=== PATIENT | female | born 1935 | race Native Hawaiian/Other Pacific Islander ===

== ENCOUNTER 2016-07-10 08:25 | Outpatient (CLI) | payer OTHER ==
[~2016-07-10 08:25] MED LIST: ACET7.5T70 PO; ALPR0.5T24 PO; CELEXA40 MG PO; CLON0.5T36 PO; DIOVAN320 MG PO; ESTR0.6211 PO; ESTRACE0.5 MG PO; HYDR10TA47 PO; MELATONIN5 M2 PO; MELO-13; MOBIC7.5 M1 PO; NAPROSYN500 MG PO; NEXIUM40 M1 PO; NEXIUM40 MG PO; RISP0.5T2 PO; ROSU10TA PO; SOMA350 MG PO
[2016-07-10 08:49] LABS: PLATELET COUNT 178 K/uL (152-353)
[2016-07-10 09:40] LABS: SODIUM 138 mmol/L (136-145)
== END 2016-07-10 09:25 | disposition home or self-care (01) ==
LOC: LABW 08:25 → EDBD 08:25 → LABW 09:25
PROVIDERS: Family Medicine
DX: F41.8 Other specified anxiety disorders (principal); I10 Essential (primary) hypertension; K21.9 Gastro-esophageal reflux disease without esophagitis; M54.2 Cervicalgia; E78.4 Other hyperlipidemia; E55.9 Vitamin D deficiency, unspecified
CPT/HCPCS: 36415; 80053; 80061; 81000; 82043; 82570; 82652; 83735; 84439; 84443; 84550; 85027

== ENCOUNTER 2016-07-24 09:10 | Outpatient (CLI) | payer OTHER | END 2016-07-24 19:46 | disposition home or self-care (01) | LOC: EDBD 09:10 → RAD 09:10 | DX: I10 Essential (primary) hypertension (principal); M25.552 Pain in left hip ==

== ENCOUNTER 2016-07-25 09:52 | Outpatient (CLI) | payer OTHER ==
[2016-07-25 10:39] LABS: PLATELET COUNT 185 K/uL (152-353)
[2016-07-25 11:03] LABS: POTASSIUM 4.1 mmol/L (3.6-5.2); SODIUM 139 mmol/L (136-145)
== END 2016-07-25 19:38 | disposition home or self-care (01) ==
LOC: LABW 09:52 → EDBD 09:52 → LABW 19:38
PROVIDERS: Specialist
DX: F03.90 Unspecified dementia, unspecified severity, without behavioral disturbance, psychotic disturbance, mood disturbance, and anxiety (principal)
CPT/HCPCS: 36415; 80053; 82607; 83090; 85027; 85651; 86039; 86140

== ENCOUNTER 2017-01-02 13:18 | Outpatient (CLI) | payer OTHER ==
[2017-01-02 13:48] LABS: PLATELET COUNT 180 K/uL (152-353)
[2017-01-02 14:16] LABS: POTASSIUM 4.4 mmol/L (3.6-5.2)
== END 2017-01-02 18:58 | disposition home or self-care (01) ==
LOC: LAB 13:18 → EDBD 13:18 → LAB 18:58
PROVIDERS: Family Medicine
DX: F41.8 Other specified anxiety disorders (principal); M54.2 Cervicalgia; I10 Essential (primary) hypertension; R94.5 Abnormal results of liver function studies; Z78.0 Asymptomatic menopausal state; Z79.899 Other long term (current) drug therapy; Z51.81 Encounter for therapeutic drug level monitoring; G47.09 Other insomnia; E55.9 Vitamin D deficiency, unspecified
CPT/HCPCS: 80053; 80061; 81000; 82043; 82570; 82652; 83036; 83735; 84439; 84443; 84550; 85027

== ENCOUNTER 2017-01-22 13:55 | Outpatient (CLI) | payer OTHER | END 2017-01-22 14:55 | disposition home or self-care (01) | LOC: RAD 13:55 | DX: N95.8 Other specified menopausal and perimenopausal disorders (principal) ==

== ENCOUNTER 2017-01-26 13:09 | Outpatient (CLI) | payer OTHER | END 2017-01-26 14:10 | disposition home or self-care (01) | LOC: LAB 13:09 | DX: R30.0 Dysuria (principal); Z91.89 Other specified personal risk factors, not elsewhere classified; N81.10 Cystocele, unspecified; N39.498 Other specified urinary incontinence | CPT/HCPCS: 81000; 87088 ==

== ENCOUNTER 2017-09-02 13:48 | Emergency (ER) | payer OTHER ==
[~2017-09-02] VITALS: Ht 165.1 cm; Wt 62.6 kg
[2017-09-02 13:45] VITALS: BP 106/46; TEMP 98.1
== END 2017-09-02 14:14 | disposition home or self-care (01) ==
LOC: ED 13:48
DX: M25.552 Pain in left hip (principal); M79.605 Pain in left leg
CPT/HCPCS: 99281

== ENCOUNTER 2017-09-03 08:55 | Outpatient (CLI) | payer OTHER | END 2017-09-03 22:04 | disposition home or self-care (01) | LOC: RAD 08:55 | DX: M25.552 Pain in left hip (principal); M25.551 Pain in right hip; M25.562 Pain in left knee; M25.561 Pain in right knee ==

== ENCOUNTER 2018-05-14 12:13 | Inpatient (IN) | payer OTHER ==
[2018-05-14] VITALS (9 sets, daily range): BP systolic 92–135; BP diastolic 55–76; TEMP 98.2–98.8; Ht 165.1 cm; Wt 66.8 kg
[~2018-05-14] VITALS: Ht 165.1 cm; Wt 66.8 kg
[~2018-05-14 12:13] MED LIST changes: +ALUMSUS6 PO; +CELEXA10 MG PO; +CRESTOR20 MG PO; +DONE5TAB PO; +EMOLOIN22 EX; +ESCI10TA PO; +LOSA50TA PO; +MAGNSUS68 PO; +MELOXICAM7.5 MG PO; +MIRTAZAPINE7.5 MG PO; +MOBIC15 MG PO; +NAMZARIC 28-101 CAP PO; +OMEP20CA PO; +PANTOPRAZOLE 40MG TA PO; +RISP0.25 PO; +TRAM50TA PO; +TYLENOL325 MG PO
[2018-05-14 14:32] LABS: PLATELET COUNT 162 K/uL (152-353)
[2018-05-14] MEDS ORDERED: ESCITALOPRAM10 MG PO (18:21)
[2018-05-15] VITALS (19 sets, daily range): BP systolic 88–144; BP diastolic 45–502; TEMP 98.4–99.2
[2018-05-15] MEDS ORDERED: CLARITIN10 M1 PO (03:51)
[2018-05-15 06:19] LABS: PLATELET COUNT 135 K/uL (152-353)
[2018-05-15 06:32] LABS: POTASSIUM 3.9 mmol/L (3.6-5.2)
[2018-05-15] MEDS ORDERED: REMERON30 MG PO (15:10)
[2018-05-16] VITALS: BP 128/50; TEMP 98.8
[2018-05-16 04:19] VITALS: BP 139/61; TEMP 98.8
[2018-05-16 05:03] LABS: PLATELET COUNT 119 K/uL (152-353)
[2018-05-16 05:16] LABS: POTASSIUM 3.7 mmol/L (3.6-5.2)
[2018-05-16 08:00] VITALS: BP 139/65; TEMP 98.8
[2018-05-16 11:40] VITALS: BP 138/62; TEMP 98.4
== END 2018-05-16 13:30 | disposition home or self-care (01) | DRG 392 ==
LOC: ICU 12:13 → MED/SURG 05-15 17:59
PROVIDERS: ADMIT Family Medicine
DX: K52.89 Other specified noninfective gastroenteritis and colitis (principal); K92.1 Melena; N39.0 Urinary tract infection, site not specified; R19.7 Diarrhea, unspecified; E86.0 Dehydration; I10 Essential (primary) hypertension; B96.29 Other Escherichia coli [E. coli] as the cause of diseases classified elsewhere
CPT/HCPCS: 80053; 82272; 82550; 83605; 83735; 83880; 84100; 84484; 85027; 85610; 87040; 87077; 87086; 87088; 87185; 87186; 87205; 87324; 87328; 87329; 87449; 87502; 87899; 93005; J1885; J1956; J3475; J3480; Q9963

== ENCOUNTER 2018-06-21 13:10 | Outpatient (CLI) | payer OTHER ==
[~2018-06-21 13:10] MED LIST changes: +CLARITIN10 M1 PO; +ESCITALOPRAM10 MG PO; +REMERON30 MG PO
== END 2018-06-21 20:05 | disposition home or self-care (01) ==
LOC: MRI 13:10
DX: G30.9 Alzheimer's disease, unspecified (principal); F02.80 Dementia in other diseases classified elsewhere, unspecified severity, without behavioral disturbance, psychotic disturbance, mood disturbance, and anxiety; M89.8X8 Other specified disorders of bone, other site; I10 Essential (primary) hypertension; E55.9 Vitamin D deficiency, unspecified

== ENCOUNTER 2018-07-17 17:12 | Emergency (ER) | payer OTHER ==
[~2018-07-17] VITALS: Ht 165.1 cm; Wt 61.7 kg
[2018-07-17 19:24] VITALS: BP 123/65; TEMP 98.1
== END 2018-07-17 19:26 | disposition home or self-care (01) ==
LOC: ED 17:12
DX: G43.909 Migraine, unspecified, not intractable, without status migrainosus (principal)
CPT/HCPCS: 96372; 99283; J1020; J1885

== ENCOUNTER 2018-11-05 13:06 | Outpatient (CLI) | payer OTHER | END 2018-11-05 23:41 | disposition home or self-care (01) | LOC: MAMMO 13:06 | DX: N63.22 Unspecified lump in the left breast, upper inner quadrant (principal) ==

== ENCOUNTER 2018-11-22 11:46 | Outpatient (CLI) | payer OTHER ==
[~2018-11-22] VITALS: Ht 30.5 cm; Wt 0.5 kg
== END 2018-11-23 05:51 | disposition home or self-care (01) ==
LOC: US 11:46
DX: N63.22 Unspecified lump in the left breast, upper inner quadrant (principal)

== ENCOUNTER 2019-12-03 11:05 | Emergency (ER) | payer OTHER ==
[~2019-12-03] VITALS: Ht 162.6 cm; Wt 62.6 kg
[2019-12-03 12:31] LABS: PLATELET COUNT 153 K/uL (152-353)
[2019-12-03 13:54] VITALS: BP 100/62; TEMP 98.9
[2019-12-03] MEDS ORDERED: 904272561 PO (14:41)
[2019-12-03] MEDS ORDERED: DONEPEZIL HYDRO10 MG PO (14:42)
[2019-12-03] MEDS ORDERED: BENZ1TAB43 PO (14:43)
[2019-12-03] MEDS ORDERED: RISP1TAB PO (14:43)
[2019-12-03] MEDS ORDERED: ANAS1TAB PO (14:44)
== END 2019-12-03 14:01 | disposition other institution (70) ==
LOC: ED 11:05
PROVIDERS: Emergency Medicine
DX: F03.91 Unspecified dementia, unspecified severity, with behavioral disturbance (principal); F05 Delirium due to known physiological condition; Z11.59 Encounter for screening for other viral diseases; Z04.6 Encounter for general psychiatric examination, requested by authority
CPT/HCPCS: 80053; 80307; 80329; 81000; 85027; 87502; 87635; 87651; 93005; 99285; U0003

== ENCOUNTER 2020-03-13 10:23 | Inpatient (IN) | payer OTHER ==
[~2020-03-13] VITALS: Ht 162.6 cm; Wt 57.7 kg
[~2020-03-13 10:23] MED LIST changes: +904272561 PO; +ANAS1TAB PO; +BENZ1TAB43 PO; +DONEPEZIL HYDRO10 MG PO; +OLAN2.5T2 PO; +RISP1TAB PO
[2020-03-13 10:45] VITALS: BP 146/83; TEMP 97.3; Ht 162.6 cm; Wt 57.7 kg
[2020-03-13 12:00] VITALS: BP 146/83; TEMP 97.3
[2020-03-13 12:33] LABS: PLATELET COUNT 179 K/uL (152-353)
[2020-03-13 16:00] VITALS: BP 148/98; TEMP 99.2
[2020-03-13 19:51] VITALS: BP 162/87; TEMP 98.3
[2020-03-13 23:54] VITALS: BP 170/89; TEMP 98.6
[2020-03-14 04:00] VITALS: BP 164/81; TEMP 98.4
[2020-03-14 08:00] VITALS: BP 186/84; TEMP 98.6
[2020-03-14 08:50] LABS: POTASSIUM 3.7 mmol/L (3.6-5.2)
[2020-03-14 08:51] LABS: PLATELET COUNT 125 K/uL (152-353)
[2020-03-14 12:00] VITALS: BP 160/68; TEMP 98.5
[2020-03-14 16:00] VITALS: BP 130/71; TEMP 97.6
[2020-03-14] MEDS ORDERED: BENZ1TAB43 PO (16:09)
[2020-03-14] MEDS ORDERED: LEXAPRO20 MG PO (16:11)
[2020-03-14] MEDS ORDERED: DOCU100C10 PO (16:14)
[2020-03-14] MEDS ORDERED: OMEGA-3 FISH1000 MG PO (16:15)
[2020-03-14 20:00] VITALS: BP 119/70; TEMP 98.2
[2020-03-15] VITALS: BP 121/65; TEMP 98.4
[2020-03-15 04:00] VITALS: BP 115/80; TEMP 98.8
[2020-03-15 05:25] LABS: POTASSIUM 3.4 mmol/L (3.6-5.2)
[2020-03-15 05:50] LABS: PLATELET COUNT 142 K/uL (152-353)
[2020-03-15 08:00] VITALS: BP 174/87; TEMP 98.3
[2020-03-15 12:00] VITALS: BP 143/74; TEMP 98.7
[2020-03-15] MEDS ORDERED: DONEPEZIL HYDRO10 M1 PO (17:38)
[2020-03-15] MEDS ORDERED: ESCITALOPRAM10 MG PO (17:38)
[2020-03-15] MEDS ORDERED: MIRTAZAPINE7.5 MG PO (17:39)
[2020-03-15] MEDS ORDERED: OLANZAPINE2.5 MG PO (17:39)
[2020-03-15] MEDS ORDERED: DOCU100C10 PO (18:07)
== END 2020-03-15 15:30 | disposition home or self-care (01) | DRG 690 ==
LOC: MED/SURG 10:23 → EDBD 10:23 → MED/SURG 10:24
PROVIDERS: ADMIT Family Medicine; ATTEND Family Medicine
DX: N39.0 Urinary tract infection, site not specified (principal); F05 Delirium due to known physiological condition; I10 Essential (primary) hypertension; M54.89 Other dorsalgia; E87.6 Hypokalemia; E83.39 Other disorders of phosphorus metabolism; D72.829 Elevated white blood cell count, unspecified; F03.90 Unspecified dementia, unspecified severity, without behavioral disturbance, psychotic disturbance, mood disturbance, and anxiety
CPT/HCPCS: 36415; 80053; 81000; 82550; 83735; 84100; 84484; 85027; 87040; 87088; 87635; 93005; 96365; 96366; J0515; J0696; U0003

== ENCOUNTER 2021-01-01 17:17 | Emergency (ER) | payer OTHER ==
[~2021-01-01] VITALS: Ht 162.6 cm; Wt 45.4 kg
[~2021-01-01 17:17] MED LIST changes: +BUSP5TAB2 PO; +CYAN10009 IM; +DOCU100C10 PO; +DONEPEZIL HYDRO10 M1 PO; +LEXAPRO20 MG PO; +OLANZAPINE2.5 MG PO; +OLANZAPINE5 MG PO; +OMEGA-3 FISH1000 MG PO
[2021-01-01 18:16] LABS: PLATELET COUNT 162 K/uL (152-353)
[2021-01-01 18:19] LABS: POTASSIUM 4.2 mmol/L (3.6-5.2)
[2021-01-02 03:41] VITALS: BP 161/98; TEMP 98.8
[2021-01-02] MEDS ORDERED: RISP1TAB PO (08:36)
[2021-01-02] MEDS ORDERED: BUSPIRONE10 MG PO (08:37)
[2021-01-02] MEDS ORDERED: FISH OIL OMEGA-1 CAP PO (08:37)
[2021-01-02] MEDS ORDERED: LEXAPRO10 MG PO (08:39)
== END 2021-01-02 08:52 | disposition other institution (70) ==
LOC: EDBD 17:17 → ED 17:17
PROVIDERS: Emergency Medicine Emergency Medical Services
DX: G30.8 Other Alzheimer's disease (principal); F02.80 Dementia in other diseases classified elsewhere, unspecified severity, without behavioral disturbance, psychotic disturbance, mood disturbance, and anxiety; Z11.52 Encounter for screening for COVID-19; Z79.899 Other long term (current) drug therapy
CPT/HCPCS: 80053; 80307; 80320; 80329; 81000; 85027; 87635; 93005; 99285; U0003

== ENCOUNTER 2021-02-05 20:25 | Emergency (ER) | payer OTHER ==
[~2021-02-05] VITALS: Ht 160 cm; Wt 53.1 kg
[~2021-02-05 20:25] MED LIST changes: +BUSPIRONE10 MG PO; +FISH OIL OMEGA-1 CAP PO; +LEXAPRO10 MG PO
[2021-02-05 21:22] LABS: PLATELET COUNT 166 K/uL (152-353)
[2021-02-05 21:43] LABS: PARTIAL THROMBOPLASTIN TIME 23.9 SECONDS (24.5-33.6); POTASSIUM 3.6 mmol/L (3.6-5.2); SODIUM 142 mmol/L (136-145)
[2021-02-05 22:28] VITALS: BP 121/66; TEMP 98.5
[2021-02-06] MEDS ORDERED: RISP1TAB PO (18:37)
[2021-02-06] MEDS ORDERED: BENZ1TAB43 PO (18:39)
== END 2021-02-05 22:28 | disposition home or self-care (01) ==
LOC: ED 20:25
PROVIDERS: Hospitalist
DX: G30.8 Other Alzheimer's disease (principal); F02.80 Dementia in other diseases classified elsewhere, unspecified severity, without behavioral disturbance, psychotic disturbance, mood disturbance, and anxiety; S50.11XA Contusion of right forearm, initial encounter; W18.39XA Other fall on same level, initial encounter; Y92.89 Other specified places as the place of occurrence of the external cause
CPT/HCPCS: 36415; 80053; 80320; 81000; 82550; 82553; 83880; 84484; 85027; 85610; 85730; 93005; 96372; 99283; J3410

== ENCOUNTER 2021-02-06 17:01 | Emergency (ER) | payer OTHER ==
[~2021-02-06] VITALS: Ht 160 cm; Wt 53.1 kg
[2021-02-06 18:13] VITALS: BP 141/68; TEMP 98.5
[2021-02-06] MEDS ORDERED: RISP1TAB PO (18:37)
[2021-02-06] MEDS ORDERED: BENZ1TAB43 PO (18:39)
== END 2021-02-06 18:13 | disposition still patient (30) ==
LOC: ED 17:01
DX: R41.0 Disorientation, unspecified (principal); G30.8 Other Alzheimer's disease; F02.80 Dementia in other diseases classified elsewhere, unspecified severity, without behavioral disturbance, psychotic disturbance, mood disturbance, and anxiety; Z11.52 Encounter for screening for COVID-19; Z04.6 Encounter for general psychiatric examination, requested by authority
CPT/HCPCS: 87635; 99283; U0003

== ENCOUNTER 2021-02-15 13:35 | Emergency (ER) | payer OTHER ==
[~2021-02-15] VITALS: Ht 152.4 cm; Wt 53.5 kg
[~2021-02-15 13:35] MED LIST changes: +DIVA125C PO
[2021-02-15 13:42] VITALS: BP 150/86; TEMP 98.1
[2021-02-15 15:21] LABS: PLATELET COUNT 192 K/uL (152-353)
[2021-02-15 15:24] LABS: POTASSIUM 4.2 mmol/L (3.6-5.2)
== END 2021-02-15 16:11 | disposition other institution (70) ==
LOC: ED 13:35
PROVIDERS: Emergency Medicine Emergency Medical Services
DX: F03.90 Unspecified dementia, unspecified severity, without behavioral disturbance, psychotic disturbance, mood disturbance, and anxiety (principal); R29.6 Repeated falls; Z11.52 Encounter for screening for COVID-19; Z04.6 Encounter for general psychiatric examination, requested by authority; W01.0XXA Fall on same level from slipping, tripping and stumbling without subsequent striking against object, initial encounter; Y92.098 Other place in other non-institutional residence as the place of occurrence of the external cause
CPT/HCPCS: 80053; 85027; 87635; 93005; 99283; U0003